=== PATIENT | male | born 1940 | race Caucasian/White ===

== ENCOUNTER 2016-06-17 07:39 | Emergency (ER) | payer OTHER ==
[2016-06-17] MEDS ORDERED: XYLOCAINE-MPF 1% 5 ML ONE (08:02)
--- NOTE | 2016-06-17 08:43 | PROVIDER DOCUMENTATION ---
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 no loc neck forrest Quality of Pain: reports: aching Severity in ED: mild Onset/Duration: last night Timing: still present Modifying Factors: improves with: nothing Any recent injury?: Yes Locality of Occurance: Home Similar Symptoms Previously?: No Recently seen or treated by another doctor?: No Review of Systems - Adult - REVIEW OF SYSTEMS - ADULT Constitutional: reports: no symptoms reported Eyes: reports: no symptoms reported Ears, Nose, Mouth & Throat: reports: no symptoms reported Cardiovascular: reports: no symptoms reported Respiratory: reports: chronic cough, dyspnea on exertion, shortness of breath, wheezing Gastrointestinal: reports: no symptoms reported Genitourinary: reports: no symptoms reported Musculoskeletal: reports: see HPI Integumentary: reports: no symptoms reported Neurological: reports: no symptoms reported Psychiatric: reports: no symptoms reported Endocrine: reports: no symptoms reported Hematologic/Lymphatic: reports: no symptoms reported Allergic/Immunologic: reports: no symptoms reported Past History - Adult - PAST MEDICAL HISTORY-ADULT Review of Records: reports: Nursing Assessment Review, Medications Reviewed, Social history reviewed & non-contributory. Major Childhood Illnesses: reports: denies history Cardiovascular: reports: CAD, CHF, HTN Respiratory: reports: COPD, cancer (hx of lung ca), other (hx PE) Gastrointestinal: reports: GERD Obstetrical/Gynecological: reports: denies history Genitourinary: reports: denies history Musculoskeletal: reports: denies history Neurological: reports: denies history Psychiatric: reports: denies history Endocrine/Immune: reports: denies history Other Conditions: reports: other (hx AAA) - PRIOR SURGERIES/PROCEDURES Surgical/Procedure History: reports: other, CABG - IMMUNIZATION STATUS Childhood Immunizations: See Nurse Assessment Flu Vaccine: See Nurse Assessment - FAMILY HISTORY Family History: reviewed, not pertinent Physical Exam-Injury Related - Physical Exam-Injury Related Initial Vital Signs Reviewed: Yes General Appearance: alert Eyes: PERRL/EOMI, pink conjunctivae Head, Ears, Nose, Mouth & Throat: normal ENT inspection, pharynx normal Neck: supple Respiratory: decreased breath sounds, rhonchi Cardiovascular: regular rate, rhythm Abdominal Exam: soft Lymphatic: no adenopathy Back Exam: normal inspection Extremity: normal range of motion Integumentary: ecchymosis, swelling, laceration Neurologic: grossly normal Psych/Mental Status: oriented x 3 Procedures - LACERATION/WOUND REPAIR/FB Head Wound's Depth, Shape: superficial, irregular, contused tissue Wound Explored/Foreign Body: clean Irrigated with Saline?: No Prepped with: Betadine Anesthetic: 1% Volume of Anesthetic (ml's): 5 Wound Repaired with: [place]-Small Number of Sutures: 5 Departure - Departure Time of Disposition Order: 08:59 DIAGNOSIS: Laceration of scalp Qualifiers: Encounter type: initial encounter Qualified Code(s): S01.01XA - Laceration without foreign body of scalp, initial encounter Head trauma Qualifiers: Encounter type: initial encounter Qualified Code(s): S09.90XA - Unspecified injury of head, initial encounter COPD (chronic obstructive pulmonary disease) Qualifiers: COPD type: COPD with acute exacerbation Qualified Code(s): J44.1 - Chronic obstructive pulmonary disease with (acute) exacerbation Disposition: HOME 01 Certified Medical Emergency: Emergent Condition: Stable Additional Instructions: ED Follow Up Instructions: You have been treated by a care provider in the Emergency Department. These instructions are being provided to you so you can have an understanding of how to care for yourself upon discharge. Upon discharge from the Emergency Department, you are responsible for making arrangements for follow-up care by a physician of your choice. Take all prescribed medications as directed. Return to the Emergency Department immediately for any new or worsening symptoms. You may call the Physician Referral phone number at [phone] to obtain a list of Physicians who are taking new patients. Referrals: Gold Peterson MD [Primary Care Provider] -
[2016-06-17] MEDS ORDERED: DEPO-MEDROL IM ONE (08:56)
--- NOTE | 2016-06-17 09:08 | Diag Imaging Result Document ---
PROCEDURE NAME: HEAD/C-SPINE W/O CONTRAST - 06/17/2016 CT HEAD WITHOUT CONTRAST: A dose-reduction protocol was used. COMPARISON: 03/19/2016. FINDINGS: There is subcutaneous soft tissue swelling at the posterior superior scalp. There is no evidence of intracranial hemorrhage, mass effect, or midline shift. There is no evidence of infarct, although acute infarcts may not be immediately visible. There is no skull fracture. IMPRESSION: No evidence of intracranial injury. No hemorrhage or mass effect. No visible infarct. CT CERVICAL SPINE WITHOUT CONTRAST: A dose reduction protocol was used. Axial and reformatted sagittal and coronal images are obtained. COMPARISON: No comparison exam. FINDINGS: There are artifacts from apparent dental hardware which mildly limit detail of the upper cervical spine. There are substantial degenerative changes at the atlantoaxial articulation. There is multilevel degenerative disk and degenerative facet disease. There is no fracture identified. There is no subluxation identified. There is no precervical soft tissue swelling. There are atherosclerotic calcifications noted at the bilateral carotid bulb regions. There are emphysematous changes noted at the visualized lung apices. IMPRESSION: 1. Multilevel degenerative disease. 2. No evidence of fracture or subluxation.
[2016-06-17 09:48] VITALS: BP 130/90
== END 2016-06-17 09:10 | disposition home or self-care (01) ==
LOC: P.ED 07:39
DX: S01.01XA Laceration without foreign body of scalp, initial encounter (principal); J44.1 Chronic obstructive pulmonary disease with (acute) exacerbation; R51 Headache; R05 Cough; R06.00 Dyspnea, unspecified; R06.02 Shortness of breath; R06.2 Wheezing; M50.30 Other cervical disc degeneration, unspecified cervical region; I25.10 Atherosclerotic heart disease of native coronary artery without angina pectoris; I10 Essential (primary) hypertension; Z85.118 Personal history of other malignant neoplasm of bronchus and lung; Z86.711 Personal history of pulmonary embolism; Z95.1 Presence of aortocoronary bypass graft; Z99.81 Dependence on supplemental oxygen; W18.30XA Fall on same level, unspecified, initial encounter
CPT/HCPCS: 70450; 72125; 96372; J1040